=== PATIENT | male | born 1955 | race American Indian/Alaskan Native ===

== ENCOUNTER 2016-09-11 10:04 | Emergency (ER) | payer OTHER ==
--- NOTE | 2016-09-11 10:48 | C.PDOC ---
History Of Present Illness 61 y/o male pmhx HTN, Afib on coumadin presents to the ED with complains of constipation x1 week. Pt has not tried any medications at home. Also reports mild abdominal cramping. Denies fever, nausea, vomiting, or any other complaints. Pt refusing blood work and imaging, requesting enema. Time Seen by Provider: 09/11/16 10:41 Chief Complaint (Nursing): Abdominal Pain History Per: Patient History/Exam Limitations: no limitations Onset/Duration Of Symptoms: Days Current Symptoms Are (Timing): Still Present Severity: Moderate Location Of Pain/Discomfort: Diffuse Radiation Of Pain To:: None Quality Of Discomfort: Cramping Associated Symptoms: Constipation. denies: Fever, Chills, Nausea, Vomiting Exacerbating Factors: None Alleviating Factors: None Recent travel outside of the [place]: No Past Medical History Reviewed: Historical Data, Nursing Documentation, Vital Signs Vital Signs: Last Vital Signs Temp 97.4 F L 09/11/16 10:33 Pulse 80 09/11/16 10:32 Resp 18 09/11/16 10:32 BP 146/90 09/11/16 10:32 Pulse Ox 99 09/11/16 11:02 - Medical History PMH: Atrial Fibrillation, HTN, Hypercholesterolemia Family History: States: Unknown Family Hx - Social History Hx Alcohol Use: No Hx Substance Use: No - Immunization History Hx Tetanus Toxoid Vaccination: No Hx Influenza Vaccination: No Hx Pneumococcal Vaccination: No Review Of Systems Except As Marked, All Systems Reviewed And Found Negative. Constitutional: Negative for: Fever, Chills Gastrointestinal: Positive for: Abdominal Pain, Constipation. Negative for: Nausea, Vomiting Physical Exam - Physical Exam Appears: Non-toxic, No Acute Distress Skin: Warm, Dry, No Rash Head: Atraumatic, Normacephalic Chest: Symmetrical Cardiovascular: Rhythm Regular, No Murmur Respiratory: Normal Breath Sounds, No Rales, No Rhonchi, No Wheezing Gastrointestinal/Abdominal: Soft, Tenderness (mild nonfocal tenderness), Distention (mild), No Guarding, No Rebound Rectal: Other (hard stool in rectal vault) Extremity: Bilateral: Atraumatic Neurological/Psych: Oriented x3, Normal Speech ED Course And Treatment O2 Sat by Pulse Oximetry: 99 (room air) Pulse Ox Interpretation: Normal Medical Decision Making Medical Decision Making: pt declines blood work imaing. enema given. had bm, feels "100% better' Disposition - Disposition Disposition: HOME/ ROUTINE Disposition Time: 11:49 Condition: STABLE Additional Instructions: please follow up with clinic. return to er with worsening symptoms or concerns. Prescriptions: Polyethylene Glycol 3350 [Miralax] 17 gm PO DAILY PRN #3 ml PRN Reason: Constipation Instructions: Acute Abdominal Pain (ED), Constipation (ED) - Clinical Impression Clinical Impression: Abdominal pain, Constipation - Scribe Statement The provider has reviewed the documentation as recorded by the Estefanía Rooney Provider Attestation: All medical record entries made by the Estefanía were at my direction and personally dictated by me. I have reviewed the chart and agree that the record accurately reflects my personal performance of the history, physical exam, medical decision making, and the department course for this patient. I have also personally directed, reviewed, and agree with the discharge instructions and disposition.
[2016-09-11 12:01] VITALS: BP 155/106; PULSE 81; RESP 19; TEMP 97.7; O2SAT 97
== END 2016-09-11 12:15 | disposition home or self-care (01) ==
LOC: C.ER 10:04
DX: K59.00 Constipation, unspecified (principal); R10.9 Unspecified abdominal pain

== ENCOUNTER 2018-03-13 15:22 | Emergency (ER) | payer OTHER ==
[2018-03-13 16:13] VITALS: BP 101/78; PULSE 89; RESP 18; TEMP 98.4; O2SAT 100
[2018-03-13] MEDS ORDERED: Amoxicillin-Clav 875-125 mg Tab PO STA (16:30)
--- NOTE | 2018-03-13 16:32 | C.PDOC ---
History Of Present Illness 63 year old male presents to the ED for evaluation of throat pain. Patient reports his uvula has felt enlarged for the past day. He denies fever, chills, voice changes, airway changes or sick exposures. Time Seen by Provider: 03/13/18 16:24 Chief Complaint (Nursing): ENT Problem History Per: Patient History/Exam Limitations: no limitations Onset/Duration Of Symptoms: Days Current Symptoms Are (Timing): Still Present Location Of Pain: Throat Associated Symptoms: denies: Fever, Chills Additional History Per: Patient Past Medical History Reviewed: Historical Data, Nursing Documentation, Vital Signs Vital Signs: Last Vital Signs Temp 98.4 F 03/13/18 16:10 Pulse 89 03/13/18 16:10 Resp 18 03/13/18 16:10 BP 101/78 03/13/18 16:10 Pulse Ox 100 03/13/18 16:10 - Medical History PMH: Atrial Fibrillation, HTN, Hypercholesterolemia Surgical History: No Surg Hx Family History: States: Unknown Family Hx - Social History Hx Alcohol Use: Yes Hx Substance Use: No - Immunization History Hx Tetanus Toxoid Vaccination: Yes Hx Influenza Vaccination: No Hx Pneumococcal Vaccination: No Review Of Systems Constitutional: Negative for: Fever, Chills ENT: Positive for: Throat Pain Physical Exam - Physical Exam Appears: Non-toxic, No Acute Distress Skin: Normal Color, Warm, Dry Head: Atraumatic, Normacephalic Eye(s): bilateral: Normal Inspection Ear(s): Bilateral: Normal Nose: Normal, No Discharge Oral Mucosa: Moist Tongue: Normal Appearing, No Swelling Lips: No Erythema Throat: No Exudate (tonsillar ), Other (erythema to posterior oropharynx, mild edema to the uvula. airway is patent. normal voice ) Chest: Symmetrical, No Deformity, No Tenderness Cardiovascular: Rhythm Regular, No Murmur Respiratory: Normal Breath Sounds, No Rales, No Rhonchi, No Wheezing Extremity: Normal ROM, Capillary Refill (less than 2 seconds ) Neurological/Psych: Oriented x3, Normal Speech, Normal Cognition ED Course And Treatment O2 Sat by Pulse Oximetry: 100 (on RA) Pulse Ox Interpretation: Normal Progress Note: Throat culture obtained. Augmentin PO and Decadron PO given. Medical Decision Making Medical Decision Making: bacterial vs viral pharyngitis + foul mouth odor + uvular edema Pt denies airway or phonation changes. Decadron PO and Augmentin now throat culture sent Disposition Doctor Will See Patient In The: Office Counseled Patient/Family Regarding: Studies Performed, Diagnosis - Disposition Referrals: [facility] [Outside] [facility] [Outside] [facility] [Outside] Disposition: HOME/ ROUTINE Disposition Time: 16:32 Condition: GOOD Additional Instructions: Augmentin antibiotic 2x/day x 7 days Motrin/Advil/ibuprofen 600 mg every 6 hours as needed return to ED if difficulty swallowing, voice changes, or airway difficulties. Prescriptions: Amoxicillin/Clavulanate [Augmentin 875 MG-125 MG] 1 tab PO BID #14 tab Instructions: Sore Throat in Adults, Sore Throat, Adult (DC) Forms: [employer] (Liberian) - Clinical Impression Clinical Impression: Pharyngitis - Scribe Statement The provider has reviewed the documentation as recorded by the Scribe (Chinyere Galdamez) Provider Attestation: All medical record entries made by the Scribe were at my direction and personally dictated by me. I have reviewed the chart and agree that the record accurately reflects my personal performance of the history, physical exam, medical decision making, and the department course for this patient. I have also personally directed, reviewed, and agree with the discharge instructions and disposition.
[2018-03-13] MEDS ORDERED: Amoxicillin-Clav 875-125 mg Tab PO ONE (16:41)
== END 2018-03-13 16:40 | disposition home or self-care (01) ==
LOC: C.ER 15:22
DX: J02.9 Acute pharyngitis, unspecified (principal)
CPT/HCPCS: 87070; 99282; J8540

== ENCOUNTER 2018-03-23 20:06 | Inpatient (IN) | payer OTHER ==
[2018-03-23 20:24] VITALS: RESP 20
[2018-03-23] MEDS ORDERED: Sodium Chloride 0.9% 1,000 ML IV ONE (21:07)
[2018-03-23 21:28] LABS: HEMOGLOBIN 12.2 g/dL (12.0-18.0); MEAN CELL VOLUME 87.8 fL (80.0-94.0); MEAN CORPUSCULAR HEMOGLOBIN 28.8 pg (27.0-31.0); MEAN CORPUSCULAR HGB CONC 32.8 g/dL (33.0-37.0); MEAN PLATELET VOLUME 9.7 fL (7.2-11.7); RBC 4.23 Mil/uL (4.40-5.90); RED CELL DISTRIBUTION WIDTH 13.6 % (11.5-14.5); WHITE BLOOD COUNT 11.6 K/uL (4.8-10.8)
[2018-03-23 21:32] LABS: ALB/GLOB RATIO 1.1 (1.0-2.1); ALBUMIN 4.1 g/dL (3.5-5.0); ALT/SGPT 23 U/L (21-72); AST/SGOT 33 U/L (17-59); BLOOD UREA NITROGEN 36 mg/dL (9-20); CALCIUM 9.1 mg/dl (8.6-10.4); GFR NON-AFRICAN AMERICAN 22
[2018-03-23 21:42] LABS: B-TYPE NATRIURETIC PEPTIDE 524 pg/mL (0-900)
[2018-03-23 22:38] LABS: PROTHROMBIN TIME 42.3 SECONDS (9.7-12.2)
[2018-03-23 22:39] LABS: INR 3.9
--- NOTE | 2018-03-23 22:48 | C.PDOC ---
History Of Present Illness 63 year old male presents to the ED for evaluation of abdominal discomfort and diarrhea for two days. Patient was evaluated in the ED on 03/13 for pharyngitis and uvulitis. Patient was prescribed 7-day course of Augmentin, which he states he finished. Patient reports poor PO intake due to nausea. He states he took his Coumadin this morning, as he usually does. Patient also reports drinking cranberry juice, which sometimes has a bad effect on his INR. He denies fever, chills, vomiting. Time Seen by Provider: 03/23/18 20:59 Chief Complaint (Nursing): Abdominal Pain History Per: Patient History/Exam Limitations: no limitations Onset/Duration Of Symptoms: Days (2) Current Symptoms Are (Timing): Still Present Location Of Pain/Discomfort: Diffuse Quality Of Discomfort: "Pain" Associated Symptoms: Nausea, Diarrhea. denies: Fever, Chills, Vomiting Past Medical History Reviewed: Historical Data, Nursing Documentation, Vital Signs Vital Signs: Last Vital Signs Temp 97.5 F L 03/23/18 20:19 Pulse 85 03/23/18 20:19 Resp 20 03/23/18 20:19 BP 86/59 L 03/23/18 20:19 Pulse Ox 100 03/23/18 20:19 - Medical History PMH: Atrial Fibrillation, HTN, Hypercholesterolemia Surgical History: No Surg Hx Family History: States: Unknown Family Hx - Social History Hx Alcohol Use: Yes Hx Substance Use: No - Immunization History Hx Tetanus Toxoid Vaccination: Yes Hx Influenza Vaccination: No Hx Pneumococcal Vaccination: No Review Of Systems Constitutional: Negative for: Fever, Chills Gastrointestinal: Positive for: Nausea, Abdominal Pain, Diarrhea. Negative for: Vomiting Physical Exam - Physical Exam Appears: Non-toxic, No Acute Distress, Other (elderly black male, who apears older than stated age ) Skin: Normal Color, Warm, Dry Head: Atraumatic, Normacephalic Eye(s): bilateral: Normal Inspection Oral Mucosa: Moist Throat: Normal, No Erythema, No Exudate Neck: Supple Chest: Symmetrical, No Deformity, No Tenderness Cardiovascular: Rhythm Regular, No Murmur Respiratory: Normal Breath Sounds, No Rales, No Rhonchi, No Wheezing Gastrointestinal/Abdominal: Soft, No Tenderness, No Guarding, No Rebound Extremity: Normal ROM, Capillary Refill (less than 2 seconds ) Neurological/Psych: Oriented x3, Normal Speech, Normal Cognition ED Course And Treatment - Laboratory Results Result Diagrams: 03/23/18 21:09 03/23/18 21:09 Lab Interpretation: Abnormal (acute renal insuffiency, no prior chemistries to compare, INR 3.9) ECG: Interpreted By Me ECG Rhythm: Atrial Fibrillation ECG Interpretation: Normal, No Changes From Prior (h/o AF) Rate From EC O2 Sat by Pulse Oximetry: 100 (on RA) Pulse Ox Interpretation: Normal - Radiology CXR: Interpreted by Me CXR Interpretation: Yes: No Acute Disease Reevaluation Time: 22:49 Reassessment Condition: Improved (only 1 bm while in ED) - Physician Consult Information Outcome Of Conversation: 2250: d/w Dr Alvarado- Medicine Fibre Composite Technician- ok to admit. Medical Decision Making Medical Decision Making: diarrhea x 2-3 days ? realated to PO Augmentin for pharyngitis/uvulitis dx last week consider tx/eval for c-diff it continues (only 1 BM in ED) Aneurysm presume AAA avoid hypertension normotensive in ED Acute renal insuff creat 2.3 no prior to compare continue hydration repeat CMP in AM Disposition Doctor Will See Patient In The: Hospital Counseled Patient/Family Regarding: Studies Performed, Diagnosis - Disposition Disposition: HOSPITALIZED Disposition Time: 22:52 Condition: GOOD - Clinical Impression Clinical Impression: Diarrhea, Acute renal insufficiency - Scribe Statement The provider has reviewed the documentation as recorded by the Scribe (Chinyere Galdamez) Provider Attestation: All medical record entries made by the Scribe were at my direction and personal ly dictated by me. I have reviewed the chart and agree that the record accurately reflects my personal performance of the history, physical exam, medical decision making, and the department course for this patient. I have also personally directed, reviewed, and agree with the discharge instructions and disposition.
[2018-03-23] MEDS ORDERED: Dextrose 5%/0.9% NS 1,000 ML IV SCH (23:30)
--- NOTE | 2018-03-24 07:32 | RAD ---
Chest x-ray single frontal view HISTORY: Shortness of breath. COMPARISON: None available. FINDINGS: Mild venous congestion. Right hilar prominence. Mild cardiomegaly. Tortuous aorta. Degenerative changes in the spine. Right paratracheal prominence may represent prominent vasculature. IMPRESSION: Mild venous congestion. Right hilar prominence. Mild cardiomegaly. Tortuous aorta. Degenerative changes in the spine. Right paratracheal prominence may represent prominent vasculature.
[2018-03-24 07:58] LABS: BASO # 0.1 K/uL (0.0-0.2); BASO % 0.8 % (0.0-2.0); EOS # 0.6 K/uL (0.0-0.7); EOS % 7.8 % (0.0-4.0); HEMOGLOBIN 11.2 g/dL (12.0-18.0); LYMPH % 14.3 % (20.0-40.0); MEAN CELL VOLUME 87.8 fL (80.0-94.0); MEAN CORPUSCULAR HEMOGLOBIN 29.3 pg (27.0-31.0); MEAN CORPUSCULAR HGB CONC 33.3 g/dL (33.0-37.0); MEAN PLATELET VOLUME 9.4 fL (7.2-11.7); MONO # 1.2 K/uL (0.0-0.8); MONO % 16.4 % (0.0-10.0); NEUT # 4.4 K/uL (1.8-7.0); NEUT % 60.7 % (50.0-75.0); RBC 3.81 Mil/uL (4.40-5.90); RED CELL DISTRIBUTION WIDTH 13.4 % (11.5-14.5); WHITE BLOOD COUNT 7.3 K/uL (4.8-10.8)
[2018-03-24 08:15] LABS: ALBUMIN 3.5 g/dL (3.5-5.0); CALCIUM 8.3 mg/dl (8.6-10.4)
[2018-03-24 08:46] LABS: INR 4.7; PROTHROMBIN TIME 51.8 SECONDS (9.7-12.2)
--- NOTE | 2018-03-24 11:02 | CP.PCM.PN ---
Subjective - Date & Time of Evaluation Date of Evaluation: 03/24/18 Time of Evaluation: 11:02 - Subjective Subjective: H&P dictated #[id number] discharge summary dictated #[id number] Objective - Vital Signs/Intake and Output Vital Signs (last 24 hours): Temp Pulse Resp BP Pulse Ox 98.7 F 85 20 98/67 L 96 03/24/18 08:00 03/24/18 08:00 03/24/18 08:00 03/24/18 08:00 03/24/18 08:00 - Medications Medications: Current Medications Dextrose/Sodium Chloride (Dextrose 5%/0.9% Ns 1000 Ml) 1,000 mls @ 50 mls/hr IV .Q20H WICHO Last Admin: 03/24/18 00:05 Dose: 50 mls/hr - Labs Labs: 03/24/18 07:46 03/24/18 07:46 PT 51.8 SECONDS (9.7-12.2) H D 03/24/18 07:46 INR 4.7 H* 03/24/18 07:46 APTT 46 SECONDS (21-34) H 03/24/18 07:46
[2018-03-24 13:54] LABS: SQUAMOUS EPITHIAL 1 /hpf (0-5); URINE BACTERIA RARE (<OCC); URINE BILIRUBIN NEGATIVE (NEGATIVE); URINE BLOOD NEGATIVE (NEGATIVE); URINE CLARITY Hazy (Clear); URINE COLOR Amber (YELLOW); URINE GLUCOSE (UA) NORMAL (Normal); URINE HYALINE CAST >20 /lpf (0-2); URINE LEUKOCYTE ESTERASE NEG Leu/uL (Negative); URINE PROTEIN 2+ mg/dL (NEGATIVE); URINE UROBILINOGEN NORMAL mg/dL (0.2-1.0)
[2018-03-24] MEDS: Dextrose 5%/0.9% NS 1,000 ML IV SCH (15:40)
[2018-03-24 16:06] VITALS: O2SAT 98
[2018-03-24 19:52] LABS: C DIFF TOXIN A B NEGATIVE (NEGATIVE)
[2018-03-24 20:03] LABS: FECAL LEUKOCYTES NEGATIVE (NEGATIVE)
[2018-03-25] MEDS: Dextrose 5%/0.9% NS 1,000 ML IV SCH (01:00)
--- NOTE | 2018-03-25 01:59 | HP ---
CHIEF COMPLAINT: Progressive worsening of diarrhea with dizziness . HISTORY OF PRESENT ILLNESS: Mr. Alonso is a 63-year-old male with past medical history of hypertension; abdominal aortic aneurysm, not on any medication, atrial fibrillation for the past 19 years; hyperlipidemia; chronic kidney disease; who has been following with Dr. Isabelle Tanner from [facility]; who has also been scheduled to see associate professor of church music and kidney doctor from [facility] this coming week. He was evaluated in the emergency room about a week ago for pharyngitis. In the ED, the patient was given Augmentin for seven days and sent home. Towards the end of the course on Sunday, the patient started having diarrhea. He had loose bowel movements one on each day up until . At Sunday, the patient had three to four loose bowel movements which were watery. No mucus. No blood noted. No foul smelling, but Sunday the patient had multiple episodes of watery bowel movements with which he felt dizzy and unable to keep anything down, which made him come to the emergency room. Denied any abdominal pain associated with it. His diarrhea got better overnight, and this morning, he had only one bowel movement. He denied any headache. He denied any dizziness this morning. Denied any nausea or vomiting. Denied any other chest pain, shortness of breath, or wheezing. Denied any neurologic symptoms. Denied any leg pains or leg cramps. PAST MEDICAL HISTORY: As described atrial fibrillation, hypertension, abdominal aneurysm, hyperlipidemia, chronic kidney disease, and osteoarthritis. PAST SURGICAL HISTORY: Underwent right leg ACL tear repair. FAMILY HISTORY: Nothing contributory to the present illness. PERSONAL HISTORY: He is retired, , having two children. SOCIAL HISTORY: He denies smoking. He smokes cigar occasionally, but smoked 30 years ago. Drinks alcohol socially. Denies any other drug abuse. ALLERGIES: NO KNOWN DRUG ALLERGIES. MEDICATIONS: His medications from home: He takes Coumadin 5 mg four times a day and 7.5 mg three times a day. Unable to recall all his other medications. REVIEW OF SYSTEMS: As described in history of present illness. All other systems reviewed and were found to be negative. PHYSICAL EXAMINATION: GENERAL: Middle-aged male, lying in bed, in no acute distress. VITAL SIGNS: Blood pressure 100/67, pulse 75, respirations 20, temperature 97.5 degrees Fahrenheit, and O2 saturation 98% on room air. HEENT: Pupils equal, round, reacting to light and accommodation. Extraocular muscles intact. No icterus. No pallor. No oral thrush. Dry mucous membranes. NECK: Supple. No JVD. LUNGS: Bilateral vesicular breath sounds. No wheezing. No rhonchi. CARDIOVASCULAR SYSTEM: S1, S2 present, irregularly irregular. ABDOMEN: Soft and nontender. Bowel sounds present. No guarding. No rigidity. No rebound tenderness noted. CENTRAL NERVOUS SYSTEM: Alert, awake, oriented x3. No focal deficits noted. EXTREMITIES: No edema. Palpable peripheral pulses. LABORATORY DATA: His labs from the emergency room: WBC 11.6, hemoglobin 12.2, hematocrit 37.2, platelets 219. PT 42.3, INR 3.9, PTT 48. Sodium 140, potassium 3.6, chloride 101, bicarb 25, BUN 36, creatinine 2.9, glucose 116, calcium 9.1, phosphorus 3.5, magnesium 1.8. LFTs within normal limits. Troponin less than 0.0120. Pro-BNP 524. Total protein 7.9, albumin 4.1, triglycerides 121, cholesterol 112, LDL 64, HDL 22. UA: Specific gravity 1.026, pH 5, protein 2+, wbc 17, rbc 4. Urine is felt negative. Urine random: Sodium 46, potassium 48.9. Repeat INR is 4.7, BUN is 38, creatinine 2.7. Chest x-ray: Mild venous congestion, right hilar prominence, mild cardiomegaly, tortuous aorta. Degenerative changes in the spine. EKG consistent with atrial fibrillation at 80 beats per minute, LVH. ASSESSMENT AND PLAN: A middle-aged male with history of atrial fibrillation, hypertension, abdominal aortic aneurysm, hyperlipidemia, osteoarthritis, chronic kidney disease, who has been following up with all the doctors from clinic, who visited the emergency room about a week ago for pharyngitis, and the patient was given Augmentin for 7 days and sent home. Towards the end of the course, he started having diarrhea of one episode, each on Sunday and . Sunday, he had four bowel movements which were watery. Sunday, he had continuous watery bowel movement which made him dizzy, and the patient came into the emergency room. In the emergency department, the patient was found to be dehydrated with elevated BUN and creatinine, and the patient is being admitted for further management. 1. Diarrhea, status post use of antibiotics. Rule out Clostridium difficile colitis. Rule out viral etiology. Rule out other infectious causes. 2. Dehydration. 3. Acute kidney injury on chronic kidney disease, elevated INR levels. 4. History of atrial fibrillation with rate control. 5. Hypertension. 6. Abdominal aortic aneurysm. 7. Hyperlipidemia. 8. Osteoarthritis. PLAN: The patient is being admitted to the floor. The patient was kept n.p.o. overnight, started on IV fluids. Stool cultures were sent. This morning, the patient's diarrhea is improving. We will start clear liquids after the cultures were sent. Flagyl 500 mg p.o. every 8 hours started. His renal function is slightly better. Continue with gentle hydration. We will obtain renal consult. We will monitor his renal function. Advised the patient to bring all his home medication for restarting all his medication. We will hold Coumadin as his INR is elevated. We will monitor the patient for diarrhea. He tolerates clear liquids. We will advance diet as tolerated. We will follow up with the stool results. We will add further recommendation as his clinical course progresses. Jeannette Guzman MD
[2018-03-25 07:12] LABS: HEMOGLOBIN 11.1 g/dL (12.0-18.0); MEAN CELL VOLUME 86.3 fL (80.0-94.0); MEAN CORPUSCULAR HEMOGLOBIN 28.7 pg (27.0-31.0); MEAN CORPUSCULAR HGB CONC 33.3 g/dL (33.0-37.0); MEAN PLATELET VOLUME 9.8 fL (7.2-11.7); RBC 3.88 Mil/uL (4.40-5.90); RED CELL DISTRIBUTION WIDTH 13.4 % (11.5-14.5); WHITE BLOOD COUNT 5.3 K/uL (4.8-10.8)
[2018-03-25 07:25] LABS: INR 5.1; PROTHROMBIN TIME 56.1 SECONDS (9.7-12.2)
[2018-03-25 08:11] LABS: ALBUMIN 3.4 g/dL (3.5-5.0); CALCIUM 8.2 mg/dl (8.6-10.4)
[2018-03-25 08:41] VITALS: BP 100/67; PULSE 70; TEMP 97.8
--- NOTE | 2018-03-25 10:17 | CP.PCM.PCO ---
Physician Communication Note - Physician Communication Note Physician Communication Note: Risks explained to pt, but he signed out AMA. Dr. Guzman is aware.
--- NOTE | 2018-03-25 23:02 | CARD ---
APPROVED REPORT Date of service: 03/23/2018 EKG Measurement Heart [id number] <Conclusion> Atrial fibrillation Minimal voltage criteria for LVH, may be normal variant Abnormal ECG
--- NOTE | 2018-03-26 07:56 | DS ---
DATE OF ADMISSION: 03/23/2018. DATE OF DISCHARGE AGAINST MEDICAL ADVICE: 03/25/2018. DISCHARGE DIAGNOSES: 1. Acute kidney injury, on chronic kidney disease. 2. Diarrhea, possible Clostridium difficile colitis versus antibiotic-induced. 3. History of atrial fibrillation. 4. Coagulopathy. 5. Hypertension. 6. History of abdominal aneurysm. 7. Hyperlipidemia. 8. Chronic kidney disease. HISTORY OF PRESENT ILLNESS: Mr. Alonso is a 63-year-old male with past medical history of hypertension, hyperlipidemia, atrial fibrillation, abdominal aneurysm, chronic kidney disease, osteoarthritis, who has been following up with doctors from [place], came into the ED with complaints of persistent diarrhea, dizziness. In the ED, the patient was found to be having elevated BUN and creatinine and admitted for dehydration and acute kidney injury. The patient was given antibiotics from ED. When I examined yesterday, the patient was feeling better. Denied any headache, dizziness. Denied any chest pain, shortness of breath, or wheezing. Denied any nausea, vomiting, abdominal pain, diarrhea, or constipation. Denied any other complaints. PHYSICAL EXAMINATION: GENERAL: On examination, middle-aged male, lying in bed in no acute distress. VITAL SIGNS: Blood pressure 100/67, pulse 70, respirations 20, temperature 97.8 degrees Fahrenheit, O2 saturation 98% on room air. HEENT: Pupils equal, round, reacting to light and accommodation. Extraocular muscles are intact. No icterus. No pallor. No oral thrush. No pharyngeal congestion. NECK: Supple. No JVD. LUNGS: Bilateral vesicular breath sounds. No wheezing. No rhonchi. CVS: S1, S2 present. Irregularly irregular. ABDOMEN: Soft. Bowel sounds present. No guarding. No rigidity. No rebound tenderness noted. ROOFER HELPER: Alert, awake, oriented x3. No focal deficits noted. EXTREMITIES: No edema. Palpable peripheral pulses. LABORATORY DATA: Labs done from this morning: WBC 5.3, hemoglobin 11.1, hematocrit 33.5, platelets 217. PT 56.1, INR 5.1, PTT 50. Sodium 140, potassium 3.4, chloride 106, bicarbonate 23, BUN 30, creatinine 1.8, glucose 101, calcium 8.2, total bilirubin 0.5, AST 16, ALT 21, alkaline phosphatase 56, total protein 6.8, albumin 3.4. UA: Specific gravity 1.026, pH 5, protein 2+, wbc 17. Stool leukocytes negative. Stool C. diff negative. Blood cultures negative. No ova or parasites seen. HOSPITAL COURSE: The patient was admitted to the hospital for dehydration, diarrhea. The patient was given IV fluids, initially kept n.p.o. Once his symptoms improved, he was started on clear liquids. After stool cultures were sent, the patient was started on Flagyl. The patient's renal function improved this morning and feeling much better. Renal consult requested. The patient's diarrhea improved, but the patient's INR is elevated at 5.1 despite stopping his Coumadin for two days. The patient wanted to go against medical advice. The patient was recommended to stay in the hospital because of his INR elevation and also for acute renal failure. Instead, the patient wanted to go against medical advice and wanted to follow up with his PMD. The patient was evaluated by taco CEDE[facility]O. As the patient is alert, awake, oriented x3 and understands the consequences of going home against medical advice, the patient was discharged against medical advice. CONDITION UPON DISCHARGE: The patient was alert, awake, and hemodynamically stable at the time of discharge. DISCHARGE INSTRUCTIONS: Advised the patient to follow up with PMD. Needs repeat PT/INR in a.m. Advised to follow up with his PMD and to hold Coumadin until repeat labs are done. Jeannette Guzman MD
[2018-03-26] MEDS ORDERED: Influenza Vaccine 60 MCG/0.5 ML SYR (3 yr & up) IM ONE (10:00)
[2018-03-26] MEDS ORDERED: Pneumococcal 23-Valent Vaccine IM ONE (10:00)
== END 2018-03-25 10:40 | disposition left against medical advice (07) | DRG 683 ==
LOC: C.ER 20:06 → C.3T 22:52
PROVIDERS: ADMIT Internal Medicine; ATTEND Internal Medicine
DX: N17.9 Acute kidney failure, unspecified (principal); K12.2 Cellulitis and abscess of mouth; D68.9 Coagulation defect, unspecified; E86.0 Dehydration; E78.00 Pure hypercholesterolemia, unspecified; I12.9 Hypertensive chronic kidney disease with stage 1 through stage 4 chronic kidney disease, or unspecified chronic kidney disease; I48.91 Unspecified atrial fibrillation; I71.4 Abdominal aortic aneurysm, without rupture; N18.9 Chronic kidney disease, unspecified